=== PATIENT | male | born 1945 | race Caucasian/White ===

== ENCOUNTER 2016-11-01 19:22 | Inpatient (IN) | payer OTHER ==
[2016-11-01 19:36] VITALS: BMI 22.4
[2016-11-01] MEDS ORDERED: ASPIRIN 325 MG TABLET PO ONE (19:59)
--- NOTE | 2016-11-01 20:01 | PDOC ---
Attending Attestation - HPI HPI: The patient is a 71 yo M with a past medical history significant for HTN, [place] ( 2002) s/p stents, who presents with 1 hour of chest pain radiating to his R arm. The patient rates the pain a 6/10 and notes one dose of sublingual nitro briefly subdued the pain while the second dose did not. The patient denies LE edema. The patient denies palpitations and lightheadedness. The patient denies diaphoresis and headache. - Physicial Exam PE: GENERAL: Well developed, well nourished. Awake and alert. No acute distress. HEENT: Normocephalic, atraumatic. PERRLA, EOMI. No conjunctival pallor. Sclera are non- icteric. Moist mucous membranes. Oropharynx is clear. discoloration of L face from childhood. NECK: Supple. Full ROM. No JVD. Carotid pulses 2+ and symmetric, without bruits. No thyromegaly. No lymphadenopathy. CARDIOVASCULAR: Regular rate and rhythm. No murmurs, rubs, or gallops. Distal pulses are 2+ and symmetric. PULMONARY: No evidence of respiratory distress. Lungs clear to auscultation bilaterally. No wheezing, rales or rhonchi. ABDOMINAL: Soft. Non-tender. Non-distended. No rebound or guarding. No organomegaly. Normoactive bowel sounds. MUSCULOSKELETAL Normal range of motion at all joints. No bony deformities or tenderness. No CVA tenderness. EXTREMITIES: No cyanosis. No clubbing. No edema. No calf tenderness. SKIN: Warm and dry. Normal capillary refill. No rashes. No jaundice. NEUROLOGICAL: No gross focal neurological deficits. PSYCHIATRIC: Cooperative. Good eye contact. Appropriate mood and affect. - Medical Decision Making Documentation prepared by Ginger Carranza, acting as medical education specialist for Steve López MD/DO. <Ginger Carranza - Last Filed: 11/01/16 21:40> - Resident Resident Name: Jonny Cortez - ED Attending Attestation I have performed the following: I have examined & evaluated the patient, The case was reviewed & discussed with the resident, I agree w/resident's findings & plan, Exceptions are as noted - HPI HPI: 11/01/16 21:34 Chest pain prior to presentation. Took his usual medication without relief. Pain was pressure like with radiation to left arm. Pt has extensive history - Physicial Exam PE: 11/01/16 21:33 *Physical Exam General Appearance: Yes: Appropriately Dressed. No: Apparent Distress, Intoxicated HEENT: positive: EOMI, TU, Normal ENT Inspection, Normal Voice, TMs Normal, Pharynx Normal. negative: Pale Conjunctivae, Photophobia, Scleral Icterus (R), Scleral Icterus (L) Neck: positive: Trachea midline, Normal Thyroid, Supple. negative: Tender, Rigid, Carotid bruit, Stridor, Lymphadenopathy (R), Lymphadenopathy (L), Thyromegaly Respiratory/Chest: positive: Lungs Clear, Normal Breath Sounds. negative: Chest Tender, Respiratory Distress, Accessory Muscle Use, Labored Respiration, RES, Crackles, Rales, Rhonchi, Stridor, Wheezing, Dullness Cardiovascular: positive: Regular Rhythm, Regular Rate, S1, S2. negative: Edema , JVD, Murmur, Bradycardia, Tachycardia Vascular Pulses: Dorsalis-Pedis (R): 2+, Doralis-Pedis (L): 2+ Gastrointestinal/Abdominal: positive: Normal Bowel Sounds, Flat, Soft. negative : Tender, Organomegaly, Pulsatile Mass, Increased Bowel Sounds, Decreased BS, Distended, Guarding, Rebound, Hernia, Hepatomegaly, Spleenomegaly Lymphatic: negative: Adenopathy, Tenderness Musculoskeletal: positive: Normal Inspection. negative: CVA Tenderness, Decreased Range of Motion Extremity: positive: Normal Capillary Refill, Normal Inspection, Normal Range of Motion, Pelvis Stable. negative: Tender, Pedal Edema, Swelling, Erythema Integumentary: positive: Normal Color, Dry, Warm. negative: Cyanotic, Erythema , Jaundice, Rash Neurologic: positive: director of blood II-XII NML intact, Fully Oriented, Alert, Normal Mood/ Affect, Motor Strength 5/5. negative: EOM Palsy, Facial Droop, Sensory Deficit - Medical Decision Making 11/01/16 21:33 the patient to be admitted for further evaluation and work up. <Steve López - Last Filed: 11/01/16 21:49> Discharge Disposition - Discharge Dispostion Admit: Yes <Steve López - Last Filed: 11/01/16 21:49> - Diagnosis Chest pain - Discharge Dispostion Condition at time of disposition: Stable Heart Score/ECG Review #1 NSR@ 89 bpm. Possible L atrial enlargement. Cannot rule out inferior infarct, age undetermined. Anterior infarct, age undetermined. ST & T wave abnormality, consider lateral ischemia. <Ginger Carranza - Last Filed: 11/01/16 21:40>
[2016-11-01] MEDS ORDERED: METOPROLOL TARTRATE 5 MG/5 ML VIAL IVPUSH ONE (20:04)
[2016-11-01] MEDS ORDERED: NITROGLYCERIN 2% OINTMENT - 1GM PACKET TD ONE ×2 (20:04→20:24)
--- NOTE | 2016-11-01 20:07 | PDOC ---
History of Present Illness - General Chief Complaint: Chest Pain Stated Complaint: CHEST PAIN Time Seen by Provider: 11/01/16 19:44 - History of Present Illness Initial Comments: 11/01/16 20:07 71M with pmh of HTN, angina, and HI in 2002 with 2 circumflex stents and 3 RCA stents presents to the ED with left-sided chest pain radiating to the left arm. The pain somewhat dissipated but came back now (09/02) PAtient says that he took sublingual nitro when he first felt the pain which helped for a while but when the pain came back he took a second dose but the pain persisted. Patient is on Nitro, plavix, clopidrogrel statin amlodipine atenolol ranolazine . no headaches, back pain, edema 11/01/16 20:44 11/01/16 22:59 Past History - Past Medical History Allergies/Adverse Reactions: Allergies Allergy/AdvReac Type Severity Reaction Status Date / Time No Known Allergies Allergy Verified 11/01/16 19:36 Home Medications: Ambulatory Orders Amlodipine Besylate [Norvasc -] 2.5 mg PO DAILY 11/01/16 Atenolol [Tenormin -] 100 mg PO DAILY 11/01/16 Clopidogrel Bisulfate [Plavix -] 75 mg PO DAILY 11/01/16 Famotidine [Pepcid] 40 mg PO DAILY 11/01/16 Isosorbide Mononitrate [Isosorbide Mononitrate ER] 30 mg PO DAILY 11/01/16 Nitroglycerin [Nitrostat] 0.4 mg SL PRN PRN 11/01/16 Ranolazine [Ranexa] 500 mg PO DAILY 11/01/16 Simvastatin 40 mg PO DAILY 11/01/16 HTN: Yes - Immunization History Td Vaccination: Yes TDAP Vaccination: Yes Immunization Up to Date: Yes - Psycho/Social/Smoking Cessation Hx Suicidal Ideation: No Smoking History: Current some day smoker Have you smoked in the past 12 months: Yes Number of Cigarettes Smoked Daily: 3 Cigars Per Day: 0 Information on smoking cessation initiated: No Hx Alcohol Use: No Drug/Substance Use Hx: No Substance Use Type: None *Physical Exam - Vital Signs Last Vital Signs Temp Pulse Resp BP Pulse Ox 97.1 F L 89 16 176/109 100 11/01/16 19:31 11/01/16 19:31 11/01/16 19:31 11/01/16 19:31 11/01/16 19:31 - Physical Exam General Appearance: Yes: Nourished, Appropriately Dressed HEENT: positive: EOMI, TU Neck: positive: Trachea midline, Supple. negative: Rigid, Lymphadenopathy (R), Lymphadenopathy (L) Respiratory/Chest: positive: Lungs Clear, Normal Breath Sounds. negative: Chest Tender, Respiratory Distress Cardiovascular: positive: Regular Rhythm, Regular Rate, S1, S2 Vascular Pulses: Dorsalis-Pedis (R): 2+, Doralis-Pedis (L): 2+ Gastrointestinal/Abdominal: positive: Normal Bowel Sounds, Flat, Soft. negative : Tender, Organomegaly, Pulsatile Mass Musculoskeletal: positive: Normal Inspection. negative: CVA Tenderness Extremity: positive: Normal Capillary Refill, Normal Range of Motion. negative : Coldness, Cyanosis, Pedal Edema Neurologic: positive: Fully Oriented, Alert, Normal Mood/Affect ED Treatment Course - LABORATORY CBC & Chemistry Diagram: 11/01/16 20:10 11/01/16 20:10 Medical Decision Making - Medical Decision Making 11/01/16 23:23 71 with pmh of HTN and Mi with multiple stent implant present to the ed with chest and left arm pain responsive to nitro. r/o [place] EKG:NSR@ 89 bpm. Possible L atrial enlargement. Cannot rule out inferior infarct , age undetermined. Anterior infarct, age undetermined. ST & T wave abnormality , consider lateral ischemia. Cardiac enzymes negative. Talked to Dr. Luevano. Patient Admitted to telemetry for observation 11/01/16 23:45 *DC/Admit/Observation/Transfer Diagnosis at time of Disposition: Chest pain
[2016-11-01 20:18] LABS: BASOPHIL 0.7 % (0-2.0); MCH 30.1 pg (25.7-33.7); MCHC 33.1 g/dl (32.0-35.9); MEAN CELL VOLUME 90.9 fl (80-96); MEAN PLT VOLUME 10.1 fl (7.5-11.1); NEUTROPHILS 54.2 % (42.8-82.8); PLATELET COUNT 166 K/MM3 (134-434); RDW 15.7 % (11.9-15.9); WHITE BLOOD COUNT 5.8 K/mm3 (4.0-10.0)
[2016-11-01] MEDS ORDERED: METOPROLOL TARTRATE 5 MG/5 ML VIAL ONE (20:24)
[2016-11-01] MEDS ORDERED: ASPIRIN 81 MG CHEWABLE TABLETS ONE (20:24)
[2016-11-01 20:39] LABS: ALBUMIN 3.4 g/dl (3.4-5.0); ANION GAP 6 (8-16); BILIRUBIN,TOTAL 0.3 mg/dL (0.2-1.0); CALCIUM 8.3 mg/dL (8.5-10.1); CO2 27 mmol/L (21-32); CREATININE 2.9 mg/dL (0.7-1.3); GLUCOSE,RANDOM 152 mg/dL (74-106); SGPT/ALT 21 U/L (12-78)
[2016-11-01] MEDS ORDERED: ONDANSETRON *ODT* 4 MG TABLET SL ONE (20:39)
[2016-11-01] MEDS ORDERED: morphine CARPU-JECT 2 MG/1 ML DISP.SYRIN IVPUSH ONE (20:39)
[2016-11-01 20:42] LABS: ALK PHOS 64 U/L (45-117); CPK 87 IU/L (39-308); TROPONIN I 0.02 ng/ml (0.00-0.05)
[2016-11-01 20:54] LABS: SGOT/AST 20 U/L (15-37)
[2016-11-01] MEDS ORDERED: ONDANSETRON *ODT* 4 MG TABLET ONE (20:54)
[2016-11-01] MEDS ORDERED: morphine CARPU-JECT 4 MG/1 ML DISP.SYRIN ONE (20:54)
[2016-11-01 21:01] LABS: INR 1.06 (0.82-1.09); PROTHROMBIN TIME (PATIENT) 11.7 SEC (9.98-11.88)
[2016-11-01] MEDS ORDERED: morphine CARPU-JECT 4 MG/1 ML DISP.SYRIN IVPUSH PRN (23:01)
[2016-11-01] MEDS ORDERED: NITROGLYCERIN SUBLINGUAL 1/150 0.4 MG TAB SL PRN (23:10)
--- NOTE | 2016-11-02 00:59 | HP ---
CHIEF COMPLAINT: chest pain Lubrication Worker: Dr. Dawood Dillon HISTORY OF PRESENT ILLNESS: 71yo M current smoker with PMH of CT in 2002, hypercholesterolemia, HTN presents c/o chest pain since 6pm. He first had a headache, then Left-sided chest pain radiating down the Left arm. At its peak, pain was rated 10/10 and felt like pressure. Pt took nitroglycerin, first dose provided relief. Second dose of nitroglycerin did not provide relief, prompting pt to come to ER. Pt felt nausea on the way to the ER. Pt has never felt chest pain like this before. He can climb 2 flights of stairs without difficulty, and only feels tired when walking uphill. Pt sleeps elevated on one pillow. Pt reports being compliant with cardiac medications. Currently pt's pain, headache, and nausea have resolved. Pt denies syncope, palpitations, tachycardia, SOB, diaphoresis, lightheadedness. ER course was notable for: (1) EKG revealing NSR (2) CXR (-) (3) troponins 0.02 (4) ASA 325mg (5) Lopressor injection 5mg (6) Morphine injection 4mg (7) Nitroglycerin paste (8) Zofran 4mg PAST MEDICAL HISTORY: HTN hypercholesterolemia CT 2002 CKD Prostate Ca 15 yrs ago PAST SURGICAL HISTORY: 2002 - 2 circumflex stents and 3 RCA stents placed at [facility] 2006 - cardiac catheterization Social History: Smokin/2 ppd x 55 yrs Alcohol: rarely a glass of wine Drugs: none Family History: mother - CT at age 70, mother of old age much later father - none Allergies No Known Allergies Allergy (Verified 11/01/16 19:36) HOME MEDICATIONS: Home Medications Medication Instructions Recorded Amlodipine Besylate [Norvasc -] 2.5 mg PO DAILY 11/01/16 Atenolol [Tenormin -] 100 mg PO DAILY 11/01/16 Clopidogrel Bisulfate [Plavix -] 75 mg PO DAILY 11/01/16 Famotidine [Pepcid] 40 mg PO DAILY 11/01/16 Isosorbide Mononitrate [Isosorbide 30 mg PO DAILY 11/01/16 Mononitrate ER] Nitroglycerin [Nitrostat] 0.4 mg SL PRN PRN 11/01/16 Ranolazine [Ranexa] 500 mg PO DAILY 11/01/16 Simvastatin 40 mg PO DAILY 11/01/16 REVIEW OF SYSTEMS CONSTITUTIONAL: Absent: fever, chills, diaphoresis, generalized weakness HEENT: Absent: throat pain, ear pain, eye pain, visual changes CARDIOVASCULAR: Absent: syncope, palpitations, irregular heart rate, lightheadedness, peripheral edema RESPIRATORY: Absent: shortness of breath, wheezing, stridor GASTROINTESTINAL: Absent: abdominal pain, nausea, vomiting, diarrhea, constipation, melena, hematochezia GENITOURINARY: Absent: hematuria MUSCULOSKELETAL: Absent: myalgia, arthralgia, joint swelling, neck pain SKIN: Absent: rash, itching, pallor NEUROLOGIC: Absent: headache, focal weakness or paresthesias, dizziness, unsteady gait, mental status changes PSYCHIATRIC: Absent: anxiety, depression PHYSICAL EXAMINATION Last Vital Signs Temp Pulse Resp BP Pulse Ox 97.1 F L 60 16 156/70 100 11/01/16 19:31 11/02/16 00:41 11/01/16 19:31 11/02/16 00:41 11/01/16 19:31 GENERAL: Awake, alert, and fully oriented, in no acute distress. HEAD: Normal with no signs of trauma. (+) large brown jesus on top of Left side of head, spanning frontal through occipital areas EYES: Pupils equal, round and reactive to light, extraocular movements intact, sclera anicteric, conjunctiva clear. No lid lag. EARS, NOSE, THROAT: Moist mucous membranes. NECK: no JVD, or masses. LUNGS: Breath sounds equal, clear to auscultation bilaterally. No wheezes, and no crackles. No accessory muscle use. HEART: Regular rate and rhythm, normal S1 and S2 without murmur, rub or gallop. ABDOMEN: Soft, nontender, not distended, normoactive bowel sounds, no guarding, no rebound, no masses. UPPER EXTREMITIES: (+) clubbing. 2+ pulses, warm, well-perfused. No cyanosis. No peripheral edema. LOWER EXTREMITIES: 2+ pulses, warm, well-perfused. No calf tenderness. No peripheral edema. NEUROLOGICAL: Normal speech. Normal gait. PSYCHIATRIC: Cooperative. Good eye contact. Appropriate mood and affect. SKIN: Warm, dry, normal turgor, no rashes or lesions noted. Troponin, BNP 11/01/16 20:10 Troponin I 0.02 CBC,CMP WBC 5.8 K/mm3 (4.0-10.0) 11/01/16 20:10 RBC 4.02 M/mm3 (4.00-5.60) 11/01/16 20:10 Hgb 12.1 GM/dL (11.7-16.9) 11/01/16 20:10 Hct 36.5 % (35.4-49) 11/01/16 20:10 MCV 90.9 fl (80-96) 11/01/16 20:10 MCH 30.1 pg (25.7-33.7) 11/01/16 20:10 MCHC 33.1 g/dl (32.0-35.9) 11/01/16 20:10 RDW 15.7 % (11.9-15.9) 11/01/16 20:10 Plt Count 166 K/MM3 (134-434) 11/01/16 20:10 MPV 10.1 fl (7.5-11.1) 11/01/16 20:10 Neutrophils % 54.2 % (42.8-82.8) 11/01/16 20:10 Lymphocytes % 27.6 % (8-40) 11/01/16 20:10 Monocytes % 10.5 % (3.8-10.2) H 11/01/16 20:10 Eosinophils % 7.0 % (0-4.5) H 11/01/16 20:10 Basophils % 0.7 % (0-2.0) 11/01/16 20:10 Sodium 140 mmol/L (136-145) 11/01/16 20:10 Potassium 5.0 mmol/L (3.5-5.1) 11/01/16 20:10 Chloride 107 mmol/L (98-107) 11/01/16 20:10 Carbon Dioxide 27 mmol/L (21-32) 11/01/16 20:10 Anion Gap 6 (8-16) L 11/01/16 20:10 BUN 26 mg/dL (7-18) H 11/01/16 20:10 Creatinine 2.9 mg/dL (0.7-1.3) H 11/01/16 20:10 Creat Clearance w eGFR 21.56 (>60) 11/01/16 20:10 Random Glucose 152 mg/dL (74-106) H 11/01/16 20:10 Calcium 8.3 mg/dL (8.5-10.1) L 11/01/16 20:10 Total Bilirubin 0.3 mg/dL (0.2-1.0) 11/01/16 20:10 AST 20 U/L (15-37) 11/01/16 20:10 ALT 21 U/L (12-78) 11/01/16 20:10 Alkaline Phosphatase 64 U/L (45-117) 11/01/16 20:10 Creatine Kinase 87 IU/L (39-308) 11/01/16 20:10 Troponin I 0.02 ng/ml (0.00-0.05) 11/01/16 20:10 Total Protein 7.0 g/dl (6.4-8.2) 11/01/16 20:10 Albumin 3.4 g/dl (3.4-5.0) 11/01/16 20:10 IMAGIN11/01/16 CXR reveals Right basilar atelectasis. ASSESSMENT/PLAN: 71yo M current smoker with PMH of CT in 2002, hypercholesterolemia, HTN admitted to telemetry observation for chest pain. 1) chest pain - likely 2/2 angina vs NSTEMI - DAVID Core for UA/NSTEMI = 3/7 (age > 65, > 3 CAD risk factors = HTN/ hypercholesterolemia/smoker, severe angina) - f/u repeat troponin - f/u repeat EKG - f/u echocardiography - Cardiology Consult - pt should f/u with stress test as an outpatient - cont. morphine 2mg IVpush q4h prn for pain 2) hypercholesterolemia - Atorvastatin 20mg PO HS 3) HTN - cont. home medications 4) CKD - Stage IV CKD - day team f/u with [facility] ([phone]) for baseline kidney function 5) smoking - counseled on quitting smoking, does not appear ready to consider this. 6) FEN - Fluids: encourage PO fluids - Electrolytes: wnl - Nutrition: sodium controlled diet 7) Prophylaxis - negro SCDs for DVT prophylaxis Visit type - Emergency Visit Emergency Visit: Yes ED Registration Date: 11/01/16 Care time: The patient presented to the Emergency Department on the above date and was hospitalized for further evaluation of their emergent condition. - New Patient This patient is new to me today: Yes Date on this admission: 11/02/16 - Critical Care Critical Care patient: No
[2016-11-02 06:16] LABS: ANION GAP 3 (8-16); CALCIUM 8.5 mg/dL (8.5-10.1); CO2 28 mmol/L (21-32); CREATININE 2.6 mg/dL (0.7-1.3); GLUCOSE,RANDOM 88 mg/dL (74-106); MAGNESIUM 2.1 mg/dL (1.8-2.4)
[2016-11-02 06:38] LABS: TROPONIN I 1.49 ng/ml (0.00-0.05)
--- NOTE | 2016-11-02 06:49 | PN ---
Teaching Attending Note Name of Resident: Amy Pradhan ATTENDING PHYSICIAN STATEMENT I saw and evaluated the patient. I reviewed the resident's note and discussed the case with the resident. I agree with the resident's findings and plan as documented. SUBJECTIVE: 71 y/o M presented with c/o chest pain with radiation to right arm, pain was constant and not relieved with nitorglycerine. Associated with nausea. Patient can walk up 2 flights of stairs without fatigue, sleeps with one pillow and denies peripheral edema. OBJECTIVE: A&Ox3 in NAD, CVS: RRR, S1, S2, no murmur appreciated, Lungs: CTA, Abd soft NT, ND, BS+, Ext no edema. CBCD WBC 5.8 K/mm3 (4.0-10.0) 11/01/16 20:10 RBC 4.02 M/mm3 (4.00-5.60) 11/01/16 20:10 Hgb 12.1 GM/dL (11.7-16.9) 11/01/16 20:10 Hct 36.5 % (35.4-49) 11/01/16 20:10 MCV 90.9 fl (80-96) 11/01/16 20:10 MCHC 33.1 g/dl (32.0-35.9) 11/01/16 20:10 RDW 15.7 % (11.9-15.9) 11/01/16 20:10 Plt Count 166 K/MM3 (134-434) 11/01/16 20:10 MPV 10.1 fl (7.5-11.1) 11/01/16 20:10 CMP Sodium 140 mmol/L (136-145) 11/02/16 05:15 Potassium 5.3 mmol/L (3.5-5.1) H 11/02/16 05:15 Chloride 109 mmol/L (98-107) H 11/02/16 05:15 Carbon Dioxide 28 mmol/L (21-32) 11/02/16 05:15 Anion Gap 3 (8-16) L 11/02/16 05:15 BUN 26 mg/dL (7-18) H 11/02/16 05:15 Creatinine 2.6 mg/dL (0.7-1.3) H 11/02/16 05:15 Creat Clearance w eGFR 21.56 (>60) 11/01/16 20:10 Calcium 8.5 mg/dL (8.5-10.1) 11/02/16 05:15 Total Bilirubin 0.3 mg/dL (0.2-1.0) 11/01/16 20:10 AST 20 U/L (15-37) 11/01/16 20:10 ALT 21 U/L (12-78) 11/01/16 20:10 Alkaline Phosphatase 64 U/L (45-117) 11/01/16 20:10 Total Protein 7.0 g/dl (6.4-8.2) 11/01/16 20:10 Albumin 3.4 g/dl (3.4-5.0) 11/01/16 20:10 ASSESSMENT AND PLAN: Chest pain r/o ACS trend troponins, ASA, plavix, Nitro SL, morphine, oxygen 2liters NC. Cardiology consult. Continue home medications. Repeat troponin trending up and heparin drip to be started.
[2016-11-02] MEDS ORDERED: HEPARIN NA (PORCINE) 5,000 UNITS/ML 1ML VIAL IVPUSH PRN ×2 (06:56)
[2016-11-02] MEDS ORDERED: HEPARIN INFUSION - 500 ML IVPB SCH (07:00)
[2016-11-02] MEDS ORDERED: CLOPIDOGREL BISULFATE 300 MG TABLET PO ONE (08:35)
[2016-11-02] MEDS ORDERED: RANOLAZINE E.R. 500 MG TABLET (FP) PO SCH (10:00)
[2016-11-02] MEDS ORDERED: CLOPIDOGREL BISULFATE 75 MG TABLET (FP) PO SCH (10:00)
[2016-11-02] MEDS ORDERED: RANITIDINE HCL 150 MG TABLET (FP) PO SCH (10:00)
[2016-11-02] MEDS ORDERED: amLODIPine BESYLATE 2.5 MG TABLET (FP) PO SCH (10:00)
[2016-11-02] MEDS ORDERED: ISOSORBIDE MONONITRATE 30 MG TAB.SR.24H (FP) PO SCH (10:00)
[2016-11-02] MEDS ORDERED: ATENOLOL 50 MG TABLET (FP) PO SCH (10:00)
[2016-11-02 12:02] VITALS: PULSE 60
[2016-11-02 14:02] LABS: TROPONIN I 2.25 ng/ml (0.00-0.05)
[2016-11-02 14:16] LABS: INR 1.12 (0.82-1.09); PROTHROMBIN TIME (PATIENT) 12.4 SEC (9.98-11.88)
[2016-11-02 14:19] LABS: ACTIVATED PTT 61.8 SECONDS (26.9-34.4)
[2016-11-02 14:42] LABS: ANION GAP 6 (8-16); CALCIUM 8.3 mg/dL (8.5-10.1); CO2 27 mmol/L (21-32); CREATININE 2.3 mg/dL (0.7-1.3); GLUCOSE,RANDOM 81 mg/dL (74-106)
--- NOTE | 2016-11-02 15:09 | EKG ---
Test Reason : Blood Pressure : / mmHG Vent. Rate : 088 BPM Atrial Rate : 088 BPM P-R Int : 188 ms QRS Dur : 098 ms QT Int : 366 ms P-R-T Axes : 048 001 152 degrees QTc Int : 442 ms NORMAL SINUS RHYTHM POSSIBLE LEFT ATRIAL ENLARGEMENT T WAVE ABNORMALITY, CONSIDER LATERAL ISCHEMIA ABNORMAL ECG NO PREVIOUS ECGS AVAILABLE Confirmed by ADINA SANTILLAN MD ([id number]) on 11/02/2016 3:09:24 PM Referred By: Confirmed By:ADINA SANTILLAN MD
--- NOTE | 2016-11-02 15:29 | EKG ---
Test Reason : Blood Pressure : / mmHG Vent. Rate : 059 BPM Atrial Rate : 059 BPM P-R Int : 172 ms QRS Dur : 092 ms QT Int : 412 ms P-R-T Axes : 058 -13 056 degrees QTc Int : 407 ms SINUS BRADYCARDIA POSSIBLE LEFT ATRIAL ENLARGEMENT POSSIBLE ANTERIOR INFARCT (CITED ON OR BEFORE 01-NOV-2016) ABNORMAL ECG WHEN COMPARED WITH ECG OF 01-NOV-2016 19:32, VENT. RATE HAS DECREASED BY 29 BPM MINIMAL CRITERIA FOR INFERIOR INFARCT ARE NO LONGER PRESENT SERIAL CHANGES OF ANTERIOR INFARCT PRESENT Confirmed by ADINA SANTILLAN MD ([id number]) on 11/02/2016 3:28:38 PM Referred By: Confirmed By:ADINA SANTILLAN MD
--- NOTE | 2016-11-02 16:18 | PN ---
Teaching Attending Note Name of Resident: Kirt Harden ATTENDING PHYSICIAN STATEMENT I saw and evaluated the patient. I reviewed the resident's note and discussed the case with the resident. I agree with the resident's findings and plan as documented. SUBJECTIVE:currently CP free. states pain resolved once arrived to the Er. Pain was similiar to MD in 2002. saw milieu technician last month. no medication changes. claim medication compliance. denies CP, SOB, palpitations, fever, chills, N/V/C/ D, dysuria, decreased UOP OBJECTIVE: Last Vital Signs Temp Pulse Resp BP Pulse Ox 97.1 F L 60 18 136/84 98 11/01/16 19:31 11/02/16 12:01 11/02/16 12:01 11/02/16 12:01 11/02/16 12:01 General NAD CV S1 S2 RRR no murmur/rub/gallop no chest wall tenderness Lungs CTA B/L no wheezing/rales/rhonchi Abdomen soft NT/ND Extremities no pedal edema ASSESSMENT AND PLAN: 71yo M with PMH MD s/p CABG, HTN, dyslipidemia presented to the ER with CP 1. NSTEMI- troponins trending up. load with plavix 300mg on heparin ggt. cont to trend troponin. echo pending. cardio consulted. will likely require cardiac cath in 48H. cont cardiac monitoring. cont betablocker, statin, asa, 2. Acute on CKD- confirmed with PMD baseline Cr 2.1. possible due to dehydration vs medication effect. check urine studies. renal u/s. hold ARB. monitor UOP 3. HTN- controlled. cont current management 4. Hyperkalemia- improved. no T wave changes 5. dyslipidemia- on statin 6. DVT ppx- hep ggt
--- NOTE | 2016-11-02 16:36 | PN ---
Physical Exam: SUBJECTIVE: Patient seen and examined Patient denies any chest pain this morning. He says pain was similar to [place] back in 2002. patient had no acute events overnight and has no complaints this morning. OBJECTIVE: GENERAL: Awake, alert, and fully oriented, in no acute distress. HEAD: Normal with no signs of trauma. (+) large brown jesus on top of Left side of head, spanning frontal through occipital areas EYES: Pupils equal, round and reactive to light, extraocular movements intact, sclera anicteric, conjunctiva clear. No lid lag. EARS, NOSE, THROAT: Moist mucous membranes. NECK: no JVD, or masses. LUNGS: Breath sounds equal, clear to auscultation bilaterally. No wheezes, and no crackles. No accessory muscle use. HEART: Regular rate and rhythm, normal S1 and S2 without murmur, rub or gallop. ABDOMEN: Soft, nontender, not distended, normoactive bowel sounds, no guarding, no rebound, no masses. UPPER EXTREMITIES: 2+ pulses, warm, well-perfused. No cyanosis. No peripheral edema. LOWER EXTREMITIES: 2+ pulses, warm, well-perfused. No calf tenderness. No peripheral edema. NEUROLOGICAL: Normal speech. Normal gait. PSYCHIATRIC: Cooperative. Good eye contact. Appropriate mood and affect. SKIN: Warm, dry, normal turgor, no rashes or lesions noted. Active Medications Generic Name Dose Route Start Last Admin Trade Name Freq PRN Reason Stop Dose Admin Amlodipine Besylate 2.5 mg 11/02/16 10:00 11/02/16 11:27 Norvasc - PO 2.5 mg DAILY JUNE Administration Atenolol 100 mg 11/02/16 10:00 11/02/16 11:27 Tenormin - PO 100 mg DAILY JUNE Administration Atorvastatin Calcium 20 mg 11/02/16 22:00 Lipitor - PO HS JUNE Clopidogrel Bisulfate 75 mg 11/02/16 10:00 11/02/16 10:16 Plavix - PO Not Given DAILY JUNE Heparin Sodium (Porcine) 1,000 unit 11/02/16 06:56 Heparin - IVPUSH PRN PRN Heparin Heparin Sodium (Porcine) 5,000 unit 11/02/16 06:56 Heparin - IVPUSH PRN PRN Heparin Heparin Sodium/Dextrose 500 mls @ 16 mls/hr 11/02/16 07:00 11/02/16 07:08 Heparin Infusion - IVPB 16 mls/hr TITR JUNE Administration Protocol 800 UNITS/HR Isosorbide Mononitrate 30 mg 11/02/16 10:00 11/02/16 11:26 Imdur - PO 30 mg DAILY JUNE Administration Morphine Sulfate 2 mg 11/01/16 23:01 Morphine Injection - IVPUSH Q4H PRN PAIN Nitroglycerin 0.4 mg 11/01/16 23:10 Nitrostat - SL Q5M PRN CHEST PAIN Ranitidine HCl 150 mg 11/02/16 10:00 11/02/16 11:27 Zantac - PO 150 mg DAILY JUNE Administration Ranolazine 500 mg 11/02/16 10:00 11/02/16 11:27 Ranexa - PO 500 mg DAILY JUNE Administration ASSESSMENT/PLAN: 71yo M current smoker with PMH of [place] in 2002, hypercholesterolemia, HTN admitted to telemetry observation for chest pain. #chest pain, likely NSTEMI -Troponins have been uptrending. Repeat at 1800. -Patient loaded with plavix 300 mg in ED -Currently on heparin drip -Echocardiogram reveals mildly reduced systolic function of lv, mild gloabl hypokinesis of lv -Continue Imdur 30 mg po daily -Continue lipitor 20 mg hs -Continue nitroglycerin sl 0.4 mg q5m prn -Continue morphine 2mg iv q4h prn -Continue amlodipine 2.5 mg po daily -Continue plavix 75 mg po daily -continue atenolol 100 mg po daily #ARJUN on CKD -Cr baseline of 2.1 -2.9 on admission downtrending -Renal ultrasound reveals multiple small cysts -Urine electrolytes -Monitor Urine output - Cardiology Consult, Dr. Luevano # hypercholesterolemia - Atorvastatin 20mg PO HS #HTN - cont. home medications #Hyperkalemia- improving -Could be 2/2 to renal dysfunction, beta norris usage -Will continue to monitor #smoking - counseled on quitting smoking, does not appear ready to consider this. #FEN - Fluids: encourage PO fluids - Electrolytes: wnl - Nutrition: sodium/potassium controlled diet #Prophylaxis -DVT- heparin drip Visit type - Emergency Visit Emergency Visit: Yes ED Registration Date: 11/02/16 Care time: The patient presented to the Emergency Department on the above date and was hospitalized for further evaluation of their emergent condition. - New Patient This patient is new to me today: Yes Date on this admission: 11/02/16 - Critical Care Critical Care patient: No
[2016-11-02 17:03] VITALS: BP 133/78; TEMP 98.2
--- NOTE | 2016-11-02 17:11 | CON.CARD ---
Consult Consult Specialty:: Cardiology - History of Present Illness Chief Complaint: Chest pain History of Present Illness: This is a 71 year old male with a PMH of HTN, angina, RI in 2002 with 2 LCX stents and 3 RCA stents. These were done at [facility] by Dr. Dillon [phone] Ext. [phone]. He presents now with left sided chest pain radiating down the left arm and initially responsive to nitro. Echocardiogram 11/02/16 EF 45 -50%, mild global LV hypokinesis. Normal RV size and funciton. Mild TR. Mild AI. EKG NSR, PRWP and anterolateral T-wave changes. Troponin Levels ).02, 1.49, 2.25. Presently CP on IV heparin. - Alcohol/Substance Use Hx Alcohol Use: No - Smoking History Smoking history: Current some day smoker Have you smoked in the past 12 months: Yes Aproximately how many cigarettes per day: 3 Home Medications - Allergies Allergies/Adverse Reactions: Allergies Allergy/AdvReac Type Severity Reaction Status Date / Time No Known Allergies Allergy Verified 11/01/16 19:36 - Home Medications Home Medications: Ambulatory Orders Amlodipine Besylate [Norvasc -] 2.5 mg PO DAILY 11/01/16 Atenolol [Tenormin -] 100 mg PO DAILY 11/01/16 Clopidogrel Bisulfate [Plavix -] 75 mg PO DAILY 11/01/16 Famotidine [Pepcid] 40 mg PO DAILY 11/01/16 Isosorbide Mononitrate [Isosorbide Mononitrate ER] 30 mg PO DAILY 11/01/16 Nitroglycerin [Nitrostat] 0.4 mg SL PRN PRN 11/01/16 Ranolazine [Ranexa] 500 mg PO DAILY 11/01/16 Simvastatin 40 mg PO DAILY 11/01/16 Review of Systems Unable to obtain ROS, reason: As per HPI Vital Signs: Vital Signs Temperature 98.2 F 11/02/16 16:46 Pulse Rate 60 11/02/16 16:46 Respiratory Rate 18 11/02/16 16:46 Blood Pressure 133/78 11/02/16 16:46 O2 Sat by Pulse Oximetry (%) 98 11/02/16 16:46 Constitutional: Yes: No Distress Neck: Yes: WNL Respiratory: Yes: CTA Bilaterally Gastrointestinal: Yes: Soft Cardiovascular: Yes: Regular Rate and Rhythm Heart Sounds: Yes: S1, S2 (No MRHG) Extremities: Yes: WNL Edema: No Neurological: Yes: WNL Psychiatric: Yes: WNL - Other Data Labs, Other Data: INR, PTT INR 1.12 (0.82-1.09) 11/02/16 13:50 Assessment/Plan 71 year old male with a PMH of HTN, angina, RI in 2002 with 2 LCX stents and 3 RCA stents. These were done at [facility] by Dr. Dillon Ext. [phone]. He presents now with left sided chest pain radiating down the left arm and initially responsive to nitro. Echocardiogram 11/02/16 EF 45 -50%, mild global LV hypokinesis. Normal RV size and funciton. Mild TR. Mild AI. EKG NSR, PRWP and anterolateral T-wave changes. Troponin Levels ).02, 1.49, 2.25. NSTEMI Will require a cardiac cath I am having a discussion with the family as to transferring the patient to a hospital for cath. Continue IV Heparin with a PTT goal of 60 - 80. Continue: Amlodipine Besylate [Norvasc -] 2.5 mg PO DAILY 11/01/16 Atenolol [Tenormin -] 100 mg PO DAILY 11/01/16 Clopidogrel Bisulfate [Plavix -] 75 mg PO DAILY 11/01/16 Famotidine [Pepcid] 40 mg PO DAILY 11/01/16 Isosorbide Mononitrate [Isosorbide Mononitrate ER] 30 mg PO DAILY 11/01/16 Nitroglycerin [Nitrostat] 0.4 mg SL PRN PRN 11/01/16 Ranolazine [Ranexa] 500 mg PO DAILY 11/01/16 Simvastatin 40 mg PO DAILY 11/01/16
[2016-11-02] MEDS ORDERED: ATORVASTATIN CA 20 MG TABLET (FP) PO SCH (22:00)
== END 2016-11-02 19:15 | disposition short-term general hospital (02) | DRG 281 ==
LOC: JER 19:22 → UNDOADMOB 21:49 → INTOOBSV 21:49 → JERBED 21:49 → J4S 11-02 15:50 → OBSVTOIN 11-02 16:15
PROVIDERS: ADMIT Internal Medicine; ATTEND Internal Medicine
DX: I21.4 Non-ST elevation (NSTEMI) myocardial infarction (principal); N17.9 Acute kidney failure, unspecified; N18.4 Chronic kidney disease, stage 4 (severe); I12.9 Hypertensive chronic kidney disease with stage 1 through stage 4 chronic kidney disease, or unspecified chronic kidney disease; E87.5 Hyperkalemia; I25.2 Old myocardial infarction; Z95.5 Presence of coronary angioplasty implant and graft; F17.210 Nicotine dependence, cigarettes, uncomplicated; E78.00 Pure hypercholesterolemia, unspecified; Z85.46 Personal history of malignant neoplasm of prostate; E78.5 Hyperlipidemia, unspecified
CPT/HCPCS: 36415; 71010-TC; 76775-TC; 80048; 80053; 83735; 84100; 84484; 85025; 85610; 85730; 93005; 93010; 93306-TC; 99285-25; G0378; J1644